=== PATIENT | male | born 2005 | race Caucasian/White ===

== ENCOUNTER 2025-09-24 18:09 | Emergency (ER) | payer MEDICAID ==
[~2025-09-24] VITALS: Ht 175.3 cm; Wt 76.8 kg
[2025-09-24 18:36] VITALS: BP 136/56; PULSE 78; RESP 16; O2SAT 98
--- NOTE | 2025-09-24 19:05 | Physician Documentation ---
History of Present Illness ~ Chief Complaint: Sore Throat Stated Complaint: THROAT PAIN Time Seen by MD: 18:53 HPI 20-year-old male presents to the ED with a complaint of cold cough congestion body aches and a sore throat. Patient states that he has a sickness" states he is otherwise healthy. Says that he is getting chills along with feeling hot at times. Day of Onset: Sep 24, 2025 Review of Systems All Other Systems at this time: Reviewed and Negative ROS As stated above in the HPI, otherwise all systems are reviewed and negative. Physical Exam Vital Signs: Heart Rate: 78, Respiratory Rate: 16, BP: 136/56, Pulse Oximetry: 98, Weight: 76.800 Physical Exam General: Alert, no apparent distress. Respiratory: Lungs clear, no respiratory distress. Chest: No accessory muscle use. Cardiovascular: Regular rate and rhythm, no murmurs. Gastrointestinal: Soft, nontender, nondistended. Bowels sounds present. Extremities: Normal range of motion, no deformity. Neurologic: Oriented x4. Psychiatric: Normal mood and affect. Skin: Normal color, warm and dry. No edema, no ecchymosis. Progress Results/Orders Results/Orders Orders - AYAN CARDOSO DOG DAYCARE PROVIDER Covid19 Binax Poc Result Entry (09/24/25 18:57) Completed Orders - AYAN CARDOSO NP Influenza Type A&B Rapid Test (09/24/25 18:57) Vital Signs 09/24/25 18:36 Pulse 78 Resp 16 B/P (MAP) 136/56 Pulse Ox 98 Laboratory Tests Test 09/24/25 18:40 09/24/25 19:03 Group A Streptococcus Rapid Negative Influenza Type A Antigen Negative Influenza Type B Antigen Negative SARS-CoV-2 Antigen (Rapid) Negative Medical Decision Making Additional information obtaine: old records Findings I explained to this patient that he likely does not have strep based on reported symptoms. Does have a swollen throat secondary to a likely viral illness. Was also resistant to accept this notion. I explained to him it with a he has COVID or flu the treatment plan we will not change. However he states he wants to know what exactly he has. I offered swabs currently awaiting test results Ear Diff. Dx: Considerations: Unlikely: Abrasion, Cerumen impaction, Foreign body, Otitis externa, Barotrauma, Otitis media, Perforation, Referred pain- dental, Referred pain-pharyngitis, Referred pain-sinusitis, Referred pain-TMJ syn., Tympanic Membrane Injury, Other Eye Diff. Dx: Considerations: Unlikely: Chalazoin, Conjuctivits-allergic, Conjuctivitis-bacterial, Conjuctivits-chlamydial, Conjuctivitis-viral, Corneal abrasion, Corneal laceration, Corneal ulceration, Foreign body-conjuctiva, Foreign body-corneal, Foreign body-intraocular, Foreign body-lid, Glaucoma, Globe rupture, Hordeolum, Iritis, Orbital cellulitis, Periobital cellulitis, Retinal artery occulsion, Retinal vein occlusion, Rust ring, Subconjunctival hem, Ultraviolet keratitis, Uveitis, Vitreous hemorrhage, Other Nose Diff. Dx: Considerations: Unlikely: Abrasion, Anterior nasal bleed, Avulsion, Contusion, Coagulopathy, Fracture-nasal bone, Fracture-septum, Hypertension, Laceration, Other, Posterior nasal bleed, Retained foreign body, Septal hematoma Tooth Diff. Dx: Considerations: Unlikely: Alveolar fracture, Aveolar osteitis, ANUG, Facial cellulitis, Periapical abscess, Periodontal abscess, Post- extraction bleeding, Pulpitis, Trigeminal neuralgia, Tooth-avulsion, Tooth- eruption, Tooth-fracture, Tooth-subluxation, Other Throat Diff Dx: Considerations: Include: AIDS, Epiglottitis, Esophageal candidiasis, Hand foot mouth disease, Herpangina, Herpetic stomatitis, Herpes simplex, Infection mononucleosis, Immunodeficiency, Steven's angina, Peritonsillar abscess, Peritonsillar cellulitis, Pharyngitis-diphtheria, Pharyngitis-strepococcal, Pharyngitis-viral, Thrush, URI, Other Departure Disposition: 01 HOME / SELF CARE / HOMELESS Impression: Primary Impression: Irritation of pharynx Additional Impressions: Acute pharyngitis Sore throat Cough Additional Instructions: Your tests came back negative including strep flu and COVID. I recommend staying home resting increase fluid intake and maintain any fevers with a either ibuprofen or Tylenol Referrals: NO PRIMARY CARE PROVIDER (PCP) Signature Scribe Signature: df Attestation: Scribed for Ayan Cardoso [employer] Receiver by Ayan Alcantar NP . 09/24/25 19:48 AYAN CARDOSO NP Sep 24, 2025 19:05
[2025-09-24 19:15] LABS: STREP A SCREEN NEGATIVE (Neg)
[2025-09-24 19:30] LABS: INFLUENZA TYPE A ANTIGEN RAPID NEGATIVE (Negative); INFLUENZA TYPE B ANTIGEN RAPID NEGATIVE (Negative)
== END 2025-09-24 20:07 | disposition home or self-care (01) ==
LOC: ER 18:11
DX: J39.2 Other diseases of pharynx (principal); J02.9 Acute pharyngitis, unspecified; R05.9 Cough, unspecified; Z20.822 Contact with and (suspected) exposure to COVID-19
CPT/HCPCS: 36415; 87081; 87804; 87811; 87880; 99283